=== PATIENT | male | born 1955 | race Caucasian/White ===

== ENCOUNTER 2017-02-19 12:41 | Emergency (ER) | payer BC ==
[~2017-02-19] VITALS: Ht 172.7 cm; Wt 90.7 kg
[2017-02-19 12:56] VITALS: BP 144/93
[2017-02-19] MEDS ORDERED: GABAPENTIN300 MG ORAL (13:50)
[2017-02-19] MEDS ORDERED: IBUPROFEN600 MG ORAL (13:50)
[2017-02-19 13:55] VITALS: BP 144/93
--- NOTE | 2017-02-19 20:49 | Emergency Room Report ---
History of Present Illness General Chief Complaint: Pain Source: Patient Present Illness HPI The patient is a 61-year-old male presenting for back pain. He states that he noticed right lower back pain 3 days prior for no known reason. He denies any injury. Pain is a 9/10 dull ache and radiates down the back of the right leg. He states that he has never had this in the past. He denies any injury. Pain worse with walking. He denies any other symptoms including abdominal pain, dysuria, hematuria, nausea, vomiting, fever,chills Allergies: Coded Allergies: No Known Allergies (Unverified , 02/19/17) Patient History Past Medical History: see triage record Pertinent Family History: none Reviewed Nursing Documentation: PMH: Agreed, PSxH: Agreed Nursing Documentation-PMH Past Medical History: No History, Except For Hx Hypertension: Yes Review of Systems All Other Systems: negative except mentioned in HPI Physical Exam Vital Signs Date Time Temp Pulse Resp B/P (MAP) Pulse Ox O2 Delivery O2 Flow Rate FiO2 02/19/17 12:56 97.7 100 17 144/93 96 Room Air Sp02 EP Interpretation: reviewed, normal General Appearance: no apparent distress, alert, GCS 15, non-toxic Head: normocephalic, atraumatic Eyes: bilateral eye normal inspection, bilateral eye PERRL ENT: hearing grossly normal, normal pharynx, no angioedema, normal voice Respiratory: chest non-tender, lungs clear, normal breath sounds, speaking full sentences Cardiovascular #1: regular rate, rhythm, no edema Gastrointestinal: normal bowel sounds, non tender, soft, non-distended, no guarding, no rebound Musculoskeletal: normal inspection, normal range of motion, tender - TTP over the R buttock and R lumbar paraspinal muscles Neurologic: alert, oriented x3, responsive, motor strength/tone normal, sensory intact, speech normal Psychiatric: judgement/insight normal, memory normal, mood/affect normal, no suicidal/homicidal ideation Skin: normal color, no rash, warm/dry, well hydrated Medical Decision Making PA Attestation Dr. Lugo is my supervising physician. Patient management was discussed with my supervising physician Diagnostic Impression: Primary Impression: Sciatica Qualified Codes: M54.31 - Sciatica, right side ER Course The patient is a 61-year-old male presenting for back pain. Ddx considered include but not limited to lumbar strain, degenerative disease, fracture, sciatica, malignancy, among others Physical exam: Afebrile. No apparent distress There is tenderness to palpation over the right buttock and lumbar paraspinal muscles. Normal gait. No obvious deformity X-rays unremarkable The patient to be discharged home with prescription for pain medication and gabapentin. he will follow up with primary doctor. ER precautions given Other X-Ray Diagnostic Results Other X-Ray Diagnostic Results : X-Ray ordered: R hip # of Views/Limited Vs Complete: 2 View Indication: Pain EP Interpretation: Yes Interpretation: no dislocation, no soft tissue swelling, no fractures Impression: No acute disease Electronically Signed by: MD MARY Turner Scribe Text I am acting as scribe for my supervising physician. My supervising physician's interpretation of the R hip xrays are there are no fractures, dislocations or soft tissue swelling. Last Vital Signs Date Time Temp Pulse Resp B/P (MAP) Pulse Ox O2 Delivery O2 Flow Rate FiO2 02/19/17 13:55 97.7 100 17 144/93 96 Room Air Status: improved Disposition: HOME, SELF-CARE Condition: Improved Scripts Gabapentin* (GABAPENTIN*) 300 Mg Capsule 300 MG ORAL THREE TIMES A DAY, #42 CAP 0 Refills Prov: VICKI PEREZ P.A. 02/19/17 Ibuprofen* (MOTRIN*) 600 Mg Tablet 600 MG ORAL Q8H Y for For Pain, #30 TAB 0 Refills Prov: VICKI PEREZ P.A. 02/19/17 Patient Instructions: Sciatica Additional Instructions: I discussed my findings with the patient. All questions and concerns have been answered. Treatment and medication compliance have been addressed. I advised the patient that they need to follow up with PMD in 3-5 days. Return to ED if symptoms worsen, new symptoms arise, or if needed for any reason. Patient verbalized understanding of discharge instructions. VICKI PEREZ Feb 19, 2017 20:49
--- NOTE | 2017-02-20 09:45 | Diagnostic Imaging Report ---
Indication: PAIN Technique: 2 views of the right hip Comparison: None Findings: No acute fractures. No dislocations. There are vascular calcifications. There are degenerative proliferative changes of the ischio-pubic junction Impression: No acute process
== END 2017-02-19 13:55 | disposition home or self-care (01) ==
LOC: EMR 13:47
DX: M54.41 Lumbago with sciatica, right side (principal); I10 Essential (primary) hypertension
CPT/HCPCS: 99284